=== PATIENT | female | born 1950 | race Caucasian/White ===

== ENCOUNTER 2018-04-14 15:38 | Emergency (ER) | payer OTHER ==
[~2018-04-14] VITALS: Ht 172.7 cm; Wt 68.0 kg
[2018-04-14] MEDS ORDERED: WARF5 (16:19)
[2018-04-14] MEDS ORDERED: LEVSOD50 (16:19)
[2018-04-14] MEDS ORDERED: HYDR1TAB94 PO (17:32)
== END 2018-04-14 17:50 | disposition home or self-care (01) ==
LOC: ER 15:38
DX: S52.502A Unspecified fracture of the lower end of left radius, initial encounter for closed fracture (principal); S52.602A Unspecified fracture of lower end of left ulna, initial encounter for closed fracture; W18.30XA Fall on same level, unspecified, initial encounter; I10 Essential (primary) hypertension
CPT/HCPCS: 25680; 73110; 99282; 99284